=== PATIENT | female | born 1965 | race Caucasian/White ===

== ENCOUNTER 2016-05-02 10:28 | Emergency (ER) | payer SELFPAY ==
[2016-05-02 10:29] VITALS: BMI 27.4
[2016-05-02] MEDS ORDERED: ONDANSETRON HCL 4 MG/2 ML VIAL IV ONE ×2 (10:47→15:11)
[2016-05-02] MEDS ORDERED: NS 1,000 ML IV ONE ×2 (10:47)
[2016-05-02] MEDS ORDERED: HYDROmorphone 1 MG INJECTION IV ONE ×3 (10:47→15:12)
[2016-05-02] MEDS ORDERED: SODIUM CHLORIDE 0.9% 3 ML FLUSH FLUSH PRN (10:53)
--- NOTE | 2016-05-02 11:08 | EDPRACDOC ---
- General Information Chief Complaint: Female Urogenital Problems Stated Complaint: URINARY PROBLEM/NAUSEA Time Seen by Provider: 05/02/16 10:55 Information Source: Patient Mode Of Arrival: Car Home Medications: Home Medications Gabapentin 600 mg PO TID 02/22/15 Omeprazole [Prilosec] 20 mg PO DAILY 02/22/15 Citalopram Hydrobromide [Celexa] 20 mg PO DAILY 12/22/15 Azithromycin [Zithromax] 1 tab PO DAILY 04/29/16 Multivitamin [One Daily] 1 tab PO DAILY 04/29/16 Oxycodone HCl [Roxicodone] 5 mg PO Q4H PRN 04/29/16 Promethazine [Phenergan] 25 mg PO Q6 PRN 04/29/16 Ondansetron HCl [Zofran] 4 mg PO Q6H PRN 05/02/16 Ondansetron [Zofran Odt] 4 mg PO Q6H #20 tab.rapdis 05/02/16 Oxycodone HCl/Acetaminophen [Percocet 5-325 mg Tablet] 1 - 2 tab PO Q4-6H PRN # 14 tab 05/02/16 Allergies/Adverse Reactions: Allergies Allergy/AdvReac Type Severity Reaction Status Date / Time Penicillins Allergy Severe Hives* Verified 05/02/16 10:45 Iodinated Contrast Media - Allergy Arrest-Resp Verified 05/02/16 10:45 IV Dye * morphine Allergy Headache Verified 05/02/16 10:45 BEES Allergy Anaphylaxis Uncoded 05/02/16 10:46 * - History of Present Illness Onset: TUESDAY HPI: PT STATES HAS H/O KIDNEY STONES HAD STENT AND LITHOTRIPSY DONE 04/29/16 WAS DOING OK AND THEN STARTED HAVING NAUSEA AND RIGHT FLANK PAIN AND BURNING WITH URINATION. STATES FEELS SIMILAR TO PASSING KIDNEY STONES. Pain Began: Reports: Spontaneous Pain Location: Reports: Back (RT), Flank (RT) Pain Severity: Moderate Pain Quality: Reports: Aching, Burning, Sharp, Stabbing : No Oral Intake: Normal Urinary Output: Normal Modifying Factors: improves with: Nothing Relevant History of: Reports: Urolithiasis, UTI Associated Signs and Symptoms: Reports: Fever (LOW GRADE), Hematuria, Dysuria, Frequency, Nausea ED Past Medical History - History Reviewed Yes Nurses notes reviewed and agree except as marked Travel Outside of [place] in the Last 3 Months?: No - Patient Medical History Neurological History: Reports: Seizures (rare. 06/2014.) Cardiac History: Reports: Hypertension. Denies: Heart Attack, Cardiac Catheterization, Hypercholesterolemia Respiratory History: Reports: Asthma, Pneumonia (12/2015). Denies: Pulmonary Embolism GI/ History: Reports: Urinary Tract Infection, Kidney Stones (50-60), Gastroesophageal Reflux, Ulcer Musculoskeletal History: Reports: Arthritis (DDD, chronic back pain. Neck pain after accident (had surgery). Fibromyalgi) Psychological History: Reports: Anxiety. Denies: Depression, Substance Use Disorder Systemic History: Reports: Anemia, Diabetes. Denies: Cancer Surgical History: Reports: Cholecystectomy (12/2015), Hysterectomy, Other ( Kidney stones removed x 1, lithotripsy x 11. 2010 Neck pins+disc from [facility]). Denies: Cardiac Catheterization - Family Medical History Reports: Hypertension, Diabetes (PGM), Cancer (PGF: lung cancer. Sister: stomach cancer), Stroke (Mother), Cardiac Disorders (Mother: MIs) - Social Medical History Smoking Status: Former smoker Social History: Denies: Substance Use Disorder EDM Review of Systems - Review of Systems ROS Negative Except as Marked: Yes All systems reviewed and were negative except as marked Constitutional: No Symptoms Reported. negative: Fever, Chills, Weakness, Fatigue, Loss of Appetite Eyes: No Symptoms Reported. negative: Redness, Blurred Vision, Double Vision, Discharge, Pain, Light Sensitive, Photophobia Ears: No Symptoms Reported. negative: Pain, Hearing Loss, Drainage, Ear Pulling Throat: No Symptoms Reported. negative: Pain, Swelling Nose: No Symptoms Reported. negative: Congestion, Bleeding, Discharge, Injection, Swelling, Deformity, Ecchymosis, Tender, Abrasion, Laceration Mouth: No Symptoms Reported. negative: Pain, Drooling Respiratory: No Symptoms Reported. negative: Cough, Brassy Cough, Barky Cough, Shortness of Breath, Wheezing, Hemoptysis Cardiovascular: No Symptoms Reported. negative: Chest Pain, Palpitations, Syncope, Edema, Orthopnea, PND, Skin Mottling, Cyanosis Gastrointestinal: Nausea. negative: Constipation, Diarrhea, Formula Intolerance , Melena, Pain, Vomiting Genitourinary: Dysuria, Hematuria, Flank Pain (RT), Urgency to urinate. negative: Bleeding, Discharge, Frequency, , Testicular Pain Neurological: No Symptoms Reported. negative: Headache, Dizziness, Seizure, Numbness, Weakness, Speech Difficulty, Gait Difficulty Musculoskeletal: No Symptoms Reported. negative: Neck, Chestwall, Ribs, Back, Shoulder, Arm, Elbow, Forearm, Wrist, Hand, Pelvis, Hip, Femur, Knee, Leg, Ankle , Foot Integumentary: No Symptoms Reported. negative: Itching, Rash, Bruising, Wound Allergic/Immunologic: No Symptoms Reported. negative: Hives, Itching Hematologic: No Symptoms Reported. negative: Lymphadenopathy, Easy Bruising, Easy Bleeding Endocrine: No Symptoms Reported. negative: Weight Gain, Weight Loss Psychiatric: No Symptoms Reported. negative: Anxiety, Depression, Hallucinations, Insomnia, Suicidal - Physical Exam Constitutional: Alert (Awake, UNCOMFORTABLE) Oriented to: Time, Person, Place Last recorded Vital Signs: Last Vital Signs Temp 100.2 F 05/02/16 10:40 Pulse 107 05/02/16 10:40 Resp 20 05/02/16 10:40 BP 150/77 05/02/16 10:40 Pulse Ox 94 05/02/16 10:40 Oxygen Pulse Oxygen Saturation 94 O2 Device Room Air Oxygen Flow Rate Fraction of Inspired Oxygen ( FIO2) - HEENT Head: Normal ( normocephalic) Eye Exam: Normal (PERRL, EOMI, Sclera white) Oropharynx: Normal (Pharynx:Moist without exudate,Gums-no swelling) Tympanic Membrane: Normal ENT EAC: Normal TMJ: Normal Nose: No Symptoms Reported (septum midline) Neck: Normal (FROM, trachea at midline) - Respiratory/Cardiovascular Respiratory: Normal - CTA (BBS clear to auscultation without adventitious sounds ) Cardiovascular: Normal (RRR without murmur, gallop or rub) - GI Auscultation: Normal (NABS) Palpation: Normal (Soft,No rebound or guarding, non distended) Tenderness: Non tender Gonzalez's Sign: Negative - Musculoskeletal Back: Normal (Non-Tender) Extremities: Normal (Normal tone, Pulses 2+ No cyanosis or edema, FROM) - Integumentary Skin: Normal, Warm, Dry Lymphatics: Normal (no adenopathy) - Neurologic Memory Impaired: Normal Motor Function: Normal (Normal tone, Pulses 2+ No cyanosis or edema, FROM) Cranial Nerve: Normal (CN II-X11 intact sensation, strength 5/5) Cerebellar: Normal Mood Description: Normal Perception: Normal ED Procedures - Additional Procedures Progress Note: RIGHT URETERAL STENT REMOVAL: STRING IDENTIFIED, SLOW GENTLE TRACTION APPLIED AND URETERAL STENT WAS REMOVED AND INTACT. PT'S SYMPTOMS WERE RELIEVED AFTER STENT REMOVAL. - Differential Diagnosis Musculoskeletal pain, Pyelonephritis, Strain, Urinary obstruction, Urolithiasis , Urinary tract infection - Results 05/02/16 11:34 05/02/16 11:34 - Diagnostic Imaging CT URO Image interpreted by: Radiologist IMPRESSION: Interval placement of right-sided ureteral stent. No ureteral calculi are noted at this time. Minimal right hydronephrosis is noted which is significantly improved compared to prior exam. Nonobstructive calculi are noted in the lower pole collecting system of right kidney. Decision Time to Discharge: 16:37 - Departure Disposition: Home Condition: Stable Final Diagnosis: Renal colic on right side, URETERAL STENT REMOVAL Instructions: Non-pharmacological Pain Management Therapies for Adults (GEN), Abdominal Pain (ED), Kidney Stones (ED) Education/Counseling Given To: Patient Education/Counseling Given Regarding: Diagnosis, Treatment, Prognosis, Follow Up Referrals: None,No Provider [Primary Care Provider] - One Week Omer Bourgeois MD [Staff Physician] - One Week Prescriptions: Ondansetron [Zofran Odt] 4 mg PO Q6H #20 tab.rapdis Oxycodone HCl/Acetaminophen [Percocet 5-325 mg Tablet] 1 - 2 tab PO Q4-6H PRN # 14 tab PRN Reason: Pain Additional Instructions: RETURN FOR WORSE OR DIFFERENT SYMPTOMS. - Physician Consulted Urology Time Called: 16:30 Provider Called: Omer Bourgeois (PULL RIGHT URETERAL STENT GIVE OXYCODONE 15MG PO AND FOLLOW UP IN CLINIC)
[2016-05-02 11:18] VITALS: TEMP 100.1
[2016-05-02] MEDS ORDERED: FENTANYL 100 MCG/2 ML VIAL IV ONE (11:33)
[2016-05-02 11:47] LABS: AUTOMATED BASOPHIL 0.3 % (0-2); AUTOMATED EOSINOPHIL 4.1 % (0-5); AUTOMATED LYMPH 47.4 % (17-44); AUTOMATED MONOCYTE 9.7 % (3-10); AUTOMATED NEUTROPHIL 38.5 % (45-76)
--- NOTE | 2016-05-02 11:53 | DIRPT ---
CLINICAL DATA: 50-year-old female with acute right flank pain and nausea. Recent right lithotripsy and stent placement on 04/29/2016. EXAM: ABDOMEN - 1 VIEW COMPARISON: 04/30/2016 and prior exams FINDINGS: A right ureteral stent is noted with tips overlying the regions of the right renal pelvis and bladder. No radiopaque calculi are identified along the course of the stent. The bowel gas pattern is unremarkable. No suspicious calcifications are identified. IMPRESSION: Right ureteral stent again noted without evidence of radiopaque calculi along the stent course. Consider CT for further evaluation, as clinically indicated. Electronically Signed By: Reuben Rose M.D. On: 05/02/2016 11:50
[2016-05-02 11:58] LABS: BLOOD UREA NITROGEN 16 MG/DL (7-17); CALC CORRECTED 8.7 MG/DL (8.4-10.2); CALCIUM 8.5 MG/DL (8.4-10.2); CALCULATED OSMOLALITY 270 MOs/Kg (270-290); CHLORIDE 100 mEq/L (98-107); GLUCOSE 98 MG/DL (70-99); SODIUM LEVEL 140 mEq/L (137-146); TOTAL PROTEIN 7.1 G/DL (6.3-8.2)
--- NOTE | 2016-05-02 13:14 | DIRPT ---
CLINICAL DATA: Right flank pain. EXAM: CT ABDOMEN AND PELVIS WITHOUT CONTRAST TECHNIQUE: Multidetector CT imaging of the abdomen and pelvis was performed following the standard protocol without IV contrast. COMPARISON: CT scan of April 29, 2016. FINDINGS: Moderate degenerative disc disease is noted at L5-S1. Visualized lung bases are unremarkable. Status post cholecystectomy. No focal abnormality is noted in the liver, spleen or pancreas on these unenhanced images. Adrenal glands appear normal. Left kidney and ureter appear normal. There is been interval placement of right ureteral stent in grossly good position. No ureteral calculi are noted at this time. Nonobstructive stones are noted in the lower pole collecting system of the right kidney. Minimal right hydronephrosis is noted which is significantly improved compared to prior exam. There is no evidence of bowel obstruction. No abnormal fluid collection is noted. Urinary bladder appears normal. Status post hysterectomy. No significant adenopathy is noted. IMPRESSION: Interval placement of right-sided ureteral stent. No ureteral calculi are noted at this time. Minimal right hydronephrosis is noted which is significantly improved compared to prior exam. Nonobstructive calculi are noted in the lower pole collecting system of right kidney. Electronically Signed By: Silviano Barnes Jr, M.D. On: 05/02/2016 13:11
[2016-05-02] MEDS ORDERED: PROMETHAZINE 25 MG/ML VIAL IV ONE (13:27)
[2016-05-02] MEDS ORDERED: HYDROmorphone 1 MG INJECTION IM ONE (13:41)
[2016-05-02] MEDS ORDERED: PROMETHAZINE 25 MG/ML VIAL IM ONE (13:41)
[2016-05-02] MEDS ORDERED: TAMSULOSIN HCL 0.4 MG CAP PO ONE (13:44)
[2016-05-02 14:55] LABS: LEUKOCYTES/URINE 2+ (NEGATIVE); RBC/URINE TNTC (0-5); URINE OCCULT BLOOD 3+ (NEG/TRACE)
[2016-05-02 14:59] LABS: NITRITE/URINE POS (NEGATIVE)
[2016-05-02] MEDS ORDERED: LORAZEPAM 2 MG/ML VIAL IV ONE (15:11)
[2016-05-02] MEDS ORDERED: OXYCODONE HCL 5 MG TABLET PO ONE (16:52)
[2016-05-02 17:14] VITALS: BP 100/55; PULSE 90
[2016-05-02] MEDS ORDERED: PROMETHAZINE 25 MG TAB PO ONE (17:25)
[2016-05-02] MEDS ORDERED: SODIUM CHLORIDE 0.9% 3 ML FLUSH FLUSH SCH (18:00)
== END 2016-05-02 17:38 | disposition home or self-care (01) ==
LOC: ED 10:28
DX: N20.0 Calculus of kidney (principal)
CPT/HCPCS: 36415; 74000; 74176; 80053; 81001; 85025; 87040; 87086; 96361; 96372; 96374; 96375; 96376; 99284; J1170; J2405; J2550; J3010; J3490

== ENCOUNTER 2016-06-06 17:37 | Emergency (ER) | payer SELFPAY ==
[2016-06-06 17:38] VITALS: BMI 27.4
[2016-06-06 17:55] VITALS: TEMP 99
[2016-06-06] MEDS ORDERED: IBUPROFEN 600 MG TAB PO ONE (18:05)
[2016-06-06] MEDS ORDERED: OXYCODONE HCL 5 MG TABLET PO ONE (18:06)
--- NOTE | 2016-06-06 18:46 | DIRPT ---
CLINICAL DATA: Fall 2 days ago. Pain EXAM: RIGHT FEMUR - 2 VIEW COMPARISON: None. FINDINGS: There is no evidence of fracture or other focal bone lesions. Soft tissues are unremarkable. IMPRESSION: Negative. Electronically Signed By: Landry Hahn M.D. On: 06/06/2016 18:43
--- NOTE | 2016-06-06 18:46 | DIRPT ---
CLINICAL DATA: Fall 2 days ago. Pain EXAM: RIGHT HIP (WITH PELVIS) 2-3 VIEWS COMPARISON: None. FINDINGS: There is no evidence of hip fracture or dislocation. There is no evidence of arthropathy or other focal bone abnormality. IMPRESSION: Negative. Electronically Signed By: Landry Hahn M.D. On: 06/06/2016 18:43
--- NOTE | 2016-06-06 18:47 | DIRPT ---
CLINICAL DATA: Status post fall. Pain. EXAM: LUMBAR SPINE - COMPLETE 4+ VIEW COMPARISON: None. FINDINGS: There is no evidence of lumbar spine fracture. Alignment is normal. Degenerative disc disease with disc height loss at L5-S1. IMPRESSION: No acute osseous injury of the lumbar spine. Electronically Signed By: Camryn Moncada On: 06/06/2016 18:44
--- NOTE | 2016-06-06 18:54 | EDPRACDOC ---
- General Chief Complaint: Fall Stated Complaint: FALL ON TUESDAY Time Seen by Provider: 06/06/16 17:55 Information Source: Patient - History of Present Illness Onset: tuesday HPI: PT PRESENTS TODAY WITH RIGHT HIP/FEMUR AND LOW BACK PAIN AFTER MECHANICAL FALL DOWN 2-3 STAIRS 2 NIGHTS AGO. NO OTHER INJURY REPORTED. Pain Severity: Reports: Moderate Injuries/Pain Location: Reports: pelvis, lower extremity Reason for Fall: Reports: slipped Loss of Consciousness: no loss of consciousness Modifying Factors: improves with: movement Associated Symptoms (Fall): Reports: denies symptoms Allergies/Adverse Reactions: Allergies Penicillins Allergy (Severe, Verified 05/02/16 10:45) Hives* Iodinated Contrast Media - IV Dye Allergy (Verified 05/02/16 10:45) Arrest-Resp* morphine Allergy (Verified 05/02/16 10:45) Headache BEES Allergy (Uncoded 05/02/16 10:46) Anaphylaxis* Home Medications: Ambulatory Orders Gabapentin 600 mg PO TID 02/22/15 Omeprazole [Prilosec] 20 mg PO DAILY 02/22/15 Citalopram Hydrobromide [Celexa] 20 mg PO DAILY 12/22/15 Azithromycin [Zithromax] 1 tab PO DAILY 04/29/16 Multivitamin [One Daily] 1 tab PO DAILY 04/29/16 Oxycodone HCl [Roxicodone] 5 mg PO Q4H PRN 04/29/16 Promethazine [Phenergan] 25 mg PO Q6 PRN 04/29/16 Ondansetron HCl [Zofran] 4 mg PO Q6H PRN 05/02/16 Ondansetron [Zofran Odt] 4 mg PO Q6H #20 tab.rapdis 05/02/16 Oxycodone HCl/Acetaminophen [Percocet 5-325 mg Tablet] 1 - 2 tab PO Q4-6H PRN # 14 tab 05/02/16 Promethazine [Phenergan] 25 mg PO Q6-8H PRN #15 tab 05/02/16 Meloxicam [Mobic] 7.5 mg PO BID #20 tab 06/06/16 ED Past Medical History - History Reviewed Yes Nurses notes reviewed and agree except as marked - Patient Medical History Neurological History: Reports: Seizures (rare. 06/2014.) Cardiac History: Reports: Hypertension. Denies: Heart Attack, Cardiac Catheterization, Hypercholesterolemia Respiratory History: Reports: Asthma, Pneumonia (12/2015). Denies: Pulmonary Embolism GI/ History: Reports: Urinary Tract Infection, Kidney Stones (50-60), Gastroesophageal Reflux, Ulcer Musculoskeletal History: Reports: Arthritis (DDD, chronic back pain. Neck pain after accident (had surgery). Fibromyalgi) Psychological History: Reports: Anxiety. Denies: Depression, Substance Use Disorder Systemic History: Reports: Anemia, Diabetes. Denies: Cancer Surgical History: Reports: Cholecystectomy (12/2015), Hysterectomy, Other ( Kidney stones removed x 1, lithotripsy x 11. 2010 Neck pins+disc from [facility]). Denies: Cardiac Catheterization - Family Medical History Reports: Hypertension, Diabetes (PGM), Cancer (PGF: lung cancer. Sister: stomach cancer), Stroke (Mother), Cardiac Disorders (Mother: MIs) - Social Medical History Smoking Status: Former smoker Social History: Denies: Substance Use Disorder EDM Review of Systems - Review of Systems ROS Negative Except as Marked: Yes All systems reviewed and were negative except as marked Constitutional: No Symptoms Reported Respiratory: No Symptoms Reported Cardiovascular: No Symptoms Reported Gastrointestinal: No Symptoms Reported Neurological: No Symptoms Reported Musculoskeletal: Femur, Hip Integumentary: Bruising - Physical Exam Constitutional: Alert (Awake), No apparent distress Oriented to: Time, Person, Place Last recorded Vital Signs: Last Vital Signs Temp 99 F 06/06/16 17:54 Pulse 107 06/06/16 17:54 Resp 20 06/06/16 17:54 BP 157/76 06/06/16 17:54 Pulse Ox 95 06/06/16 17:54 Oxygen Pulse Oxygen Saturation 95 O2 Device Oxygen Flow Rate Fraction of Inspired Oxygen ( FIO2) - HEENT Head: Normal Eye Exam: Normal Neck: Normal, Denies Pain, Midline - Respiratory/Cardiovascular Respiratory: Normal - CTA Cardiovascular: Normal - GI Palpation: Normal Tenderness: Non tender - Musculoskeletal Back: Lumbar TTP, No Palpable Step-off Extremities: Other (NOTED LARGE BRUISE TO RIGHT LATERAL FEMUR WITH MILD SWELLING ; NO APPARENT DEFORMITY) - Integumentary Skin: Normal Lymphatics: Normal - Neurologic Mood Description: Normal Thought: Coherent ED Injury/Fall Exam - Physical Exam Head Injury: no evidence of injury Extremity Exam: pelvis stable, pain with movement, tenderness Skin: Normal - [place] Coma Score Best Eye Response ([place]): (4) open spontaneously Best Verbal Response ([place]): (5) oriented Best Motor Response ([place]): (6) obeys commands [place] Total: 15 - Additional Information [place] YOSELIN REVIEWED; PT HAS NUMEROUS NARCOTICS FILLED FROM HER PCP OVERLAPPING OTHER PROVIDERS Decision Time to Discharge: 18:56 - Departure Disposition: Home Condition: Good Final Diagnosis: Accidental fall Instructions: RICE Therapy (ED) Education/Counseling Given To: Patient Education/Counseling Given Regarding: Diagnosis, Treatment, Follow Up Referrals: None,No Provider [Primary Care Provider] - One Week [facility] [NonStaff] - One Week Prescriptions: New Meloxicam [Mobic] 7.5 mg PO BID #20 tab No Action Omeprazole [Prilosec] 20 mg PO DAILY Gabapentin 600 mg PO TID Citalopram Hydrobromide [Celexa] 20 mg PO DAILY Multivitamin [One Daily] 1 tab PO DAILY Azithromycin [Zithromax] 1 tab PO DAILY Oxycodone HCl [Roxicodone] 5 mg PO Q4H PRN PRN Reason: Pain Promethazine [Phenergan] 25 mg PO Q6 PRN PRN Reason: Nausea/Vomiting Ondansetron HCl [Zofran] 4 mg PO Q6H PRN PRN Reason: Nausea/Vomiting Ondansetron [Zofran Odt] 4 mg PO Q6H #20 tab.rapdis Oxycodone HCl/Acetaminophen [Percocet 5-325 mg Tablet] 1 - 2 tab PO Q4-6H PRN #14 tab PRN Reason: Pain Promethazine [Phenergan] 25 mg PO Q6-8H PRN #15 tab PRN Reason: Nausea/Vomiting Additional Instructions: HEATING PADS TO [facility] FOR ADDITIONAL RELIEF. FOLLOW UP WITH PCP IN 2- 3 DAYS IF NEEDED.
[2016-06-06 19:10] VITALS: BP 136/72; PULSE 97
== END 2016-06-06 19:04 | disposition home or self-care (01) ==
LOC: EDMC 17:37
DX: M54.5 Low back pain (principal); W19.XXXA Unspecified fall, initial encounter; Y93.9 Activity, unspecified
CPT/HCPCS: 72110; 73502; 73552; 99283; J3490